=== PATIENT | female | born 1955 | race Caucasian/White ===

== ENCOUNTER 2016-04-12 19:38 | Observation (INO) | payer OTHER ==
[2016-04-12 20:25] LABS: Basophils # (A) 0.1 k/uL (0-0.2); Basophils % (A) 1 %; CHCM 34.6; Eosinophils # (A) 0.1 k/uL (0-0.7); Eosinophils % (A) 2 %; HDW 2.66; Luc # (Auto) 0.12; Luc % (Auto) 2; Lymphocytes # (A) 1.4 k/uL (1.0-4.8); Lymphocytes % (A) 23 %; MCHC 33.2 g/dL (31.0-37.0); MCV 90.1 fL (80.0-100.0); Mean Platelet Volume 7.9; Monocytes # (A) 0.5 k/uL (0-1.0); Monocytes % (A) 8 %; Neutrophils # (A) 3.9 k/uL (1.3-7.7); Neutrophils % (A) 65 %; RDW 13.2 % (11.5-15.5); WBC (Perox) 6.22
[2016-04-12 20:38] LABS: ALT 45 U/L (9-52); AST 25 U/L (14-36); Alkaline Phosphatase 101 U/L (38-126); Amylase <30 U/L (30-110); Anion Gap 15 mmol/L; Blood Urea Nitrogen 12 mg/dL (7-17); Carbon Dioxide 25 mmol/L (22-30); Chloride 104 mmol/L (98-107); Glucose 115 mg/dL (74-99); Non-African American GFR(MDRD) >60 (>60 ml/min/1.73 sqM); Potassium 3.7 mmol/L (3.5-5.1); Sodium 144 mmol/L (137-145); Total Bilirubin 0.5 mg/dL (0.2-1.3); Total Protein 7.6 g/dL (6.3-8.2)
[2016-04-12] MEDS ORDERED: NITROGLYCERIN OINT 1 INCH/GM PACKET TOPICAL STA (20:43)
[2016-04-12] MEDS ORDERED: ASPIRIN 81 MG CHEW PO STA (20:43)
--- NOTE | 2016-04-12 20:43 | XR ---
EXAMINATION TYPE: XR chest 2V DATE OF EXAM: 04/12/2016 8:29 PM COMPARISON: NONE HISTORY: Chest pain TECHNIQUE: Frontal and lateral views of the chest are obtained. FINDINGS: Heart and mediastinum are normal. Lungs are clear of consolidation. There are no hilar mas ses. Costophrenic angles are clear. There are chest leads. IMPRESSION: No active cardiopulmonary disease.
--- NOTE | 2016-04-12 20:46 | ED ---
General Adult HPI - General Chief complaint: Chest Pain Stated complaint: Chest Pain Time Seen by Provider: 04/12/16 20:34 Source: patient, RN notes reviewed Mode of arrival: wheelchair Limitations: no limitations - History of Present Illness Initial comments: Patient is a pleasant [id number] female presenting to the emergency department with complaints of chest discomfort. Onset of symptoms was 2 days ago. Symptoms worsened today. Symptoms have been waxing and waning. Patient states symptoms are currently minimal. Patient complains of burning in her chest without radiation. No associated dyspnea, nausea or diaphoresis. Food may or may not be related. Patient did have similar symptoms around 10 years ago associated with her gallbladder. No leg pain or swelling. No cough or fever. - Related Data Home Medications Medication Instructions Recorded Confirmed ALPRAZolam [Xanax] 0.125 - 0.25 mg PO DAILY PRN 04/12/16 04/12/16 Atenolol [Tenormin] 50 mg PO DAILY 04/12/16 04/12/16 Cyanocobalamin [Vitamin B-12] 500 mcg PO DAILY 04/12/16 04/12/16 Hydrochlorothiazide 12.5 mg PO DAILY@1200 04/12/16 04/12/16 Omeprazole [PriLOSEC] 20 mg PO DAILY 04/12/16 04/12/16 Valsartan [Diovan] 40 mg PO DAILY 04/12/16 04/12/16 diphenhydrAMINE [Benadryl] 25 mg PO BID 04/12/16 04/12/16 metFORMIN HCL [Glucophage] 500 mg PO DAILY 04/12/16 04/12/16 Allergies Allergy/AdvReac Type Severity Reaction Status Date / Time ampicillin Allergy Unknown Verified 04/12/16 20:12 cephalexin [From Keflex] Allergy Unknown Verified 04/12/16 20:12 codeine Allergy Unknown Verified 04/12/16 20:12 erythromycin base Allergy Unknown Verified 04/12/16 20:12 Penicillins Allergy Unknown Verified 04/12/16 20:12 tetracycline Allergy Unknown Verified 04/12/16 20:12 Review of Systems ROS Statement: Those systems with pertinent positive or pertinent negative responses have been documented in the HPI. ROS Other: All systems not noted in ROS Statement are negative. Constitutional: Denies: fever Eyes: Denies: eye pain ENT: Denies: ear pain Respiratory: Denies: cough, dyspnea Cardiovascular: Reports: chest pain. Denies: palpitations Endocrine: Denies: fatigue Gastrointestinal: Denies: abdominal pain, nausea, vomiting Genitourinary: Denies: dysuria Musculoskeletal: Denies: back pain Skin: Denies: rash Neurological: Denies: headache Psychiatric: Denies: depression Past Medical History Past Medical History: Diabetes Mellitus, Hypertension Additional Past Medical History / Comment(s): irregular heart rate History of Any Multi-Drug Resistant Organisms: None Reported Past Surgical History: Hernia Repair Past Psychological History: Anxiety Smoking Status: Current every day smoker Past Alcohol Use History: None Reported Past Drug Use History: None Reported General Exam Limitations: no limitations General appearance: alert, in no apparent distress Head exam: Present: atraumatic, normocephalic Eye exam: Present: normal appearance, PERRL ENT exam: Present: normal oropharynx Neck exam: Present: normal inspection Respiratory exam: Present: normal lung sounds bilaterally Cardiovascular Exam: Present: regular rate, normal rhythm Expanded Peripheral pulses: 2+: Radial (R), Radial (L), Dorsalis Pedis (R), Dorsalis Pedis (L) GI/Abdominal exam: Present: soft. Absent: tenderness Extremities exam: Present: normal inspection. Absent: pedal edema, calf tenderness Neurological exam: Present: alert Psychiatric exam: Present: normal affect, normal mood Skin exam: Absent: rash Course Vital Signs 04/12/16 04/12/16 19:42 20:57 Temperature 97.9 F Pulse Rate 77 64 Respiratory 18 16 Rate Blood Pressure 199/91 155/77 O2 Sat by Pulse 95 97 Oximetry EKG Findings - EKG Comments: EKG Findings:: Sinus rhythm at 72. First-degree AV block. MI of 220. QRS 88. QT 406. QTc 444. Left axis. LVH criteria. Inferior Q waves. Medical Decision Making - Medical Decision Making Patient reexamined and resting comfortably in bed. Patient is symptom-free. Patient updated on results and plan. Case discussed in detail with practitioner Melissa wilkins, who will admit for Dr. brown for dandre - Lab Data Result diagrams: 04/12/16 20:00 04/12/16 20:00 Lab Results 04/12/16 04/12/16 04/12/16 Range/Units 20:00 20:00 20:00 WBC 6.0 (3.8-10.6) k/uL RBC 5.00 (3.80-5.40) m/uL Hgb 15.0 (11.4-16.0) gm/dL Hct 45.0 (34.0-46.0) % MCV 90.1 (80.0-100.0) fL MCH 30.0 (25.0-35.0) pg MCHC 33.2 (31.0-37.0) g/dL RDW 13.2 (11.5-15.5) % Plt Count 208 (150-450) k/uL Neutrophils % 65 % Lymphocytes % 23 % Monocytes % 8 % Eosinophils % 2 % Basophils % 1 % Neutrophils # 3.9 (1.3-7.7) k/uL Lymphocytes # 1.4 (1.0-4.8) k/uL Monocytes # 0.5 (0-1.0) k/uL Eosinophils # 0.1 (0-0.7) k/uL Basophils # 0.1 (0-0.2) k/uL PT (9.0-12.0) sec INR (<1.1) APTT (22.0-30.0) sec Sodium 144 (137-145) mmol/L Potassium 3.7 (3.5-5.1) mmol/L Chloride 104 (98-107) mmol/L Carbon Dioxide 25 (22-30) mmol/L Anion Gap 15 mmol/L BUN 12 (7-17) mg/dL Creatinine 0.56 (0.52-1.04) mg/dL Est GFR (MDRD) Af Amer >60 (>60 ml/min/1.73 sqM) Est GFR (MDRD) Non-Af >60 (>60 ml/min/1.73 sqM) Glucose 115 H (74-99) mg/dL Calcium 10.0 (8.4-10.2) mg/dL Magnesium (1.6-2.3) mg/dL Total Bilirubin 0.5 (0.2-1.3) mg/dL AST 25 (14-36) U/L ALT 45 (9-52) U/L Alkaline Phosphatase 101 (38-126) U/L Total Creatine Kinase 104 (30-135) U/L CK-MB (CK-2) 2.8 H* (0.0-2.4) ng/mL CK-MB (CK-2) Rel Index 2.7 Troponin I <0.012 (0.000-0.034) ng/mL Total Protein 7.6 (6.3-8.2) g/dL Albumin 4.7 (3.5-5.0) g/dL Amylase <30 L (30-110) U/L Lipase 76 (23-300) U/L 04/12/16 04/12/16 Range/Units 20:00 20:00 WBC (3.8-10.6) k/uL RBC (3.80-5.40) m/uL Hgb (11.4-16.0) gm/dL Hct (34.0-46.0) % MCV (80.0-100.0) fL MCH (25.0-35.0) pg MCHC (31.0-37.0) g/dL RDW (11.5-15.5) % Plt Count (150-450) k/uL Neutrophils % % Lymphocytes % % Monocytes % % Eosinophils % % Basophils % % Neutrophils # (1.3-7.7) k/uL Lymphocytes # (1.0-4.8) k/uL Monocytes # (0-1.0) k/uL Eosinophils # (0-0.7) k/uL Basophils # (0-0.2) k/uL PT 10.0 (9.0-12.0) sec INR 1.0 (<1.1) APTT 24.6 (22.0-30.0) sec Sodium (137-145) mmol/L Potassium (3.5-5.1) mmol/L Chloride (98-107) mmol/L Carbon Dioxide (22-30) mmol/L Anion Gap mmol/L BUN (7-17) mg/dL Creatinine (0.52-1.04) mg/dL Est GFR (MDRD) Af Amer (>60 ml/min/1.73 sqM) Est GFR (MDRD) Non-Af (>60 ml/min/1.73 sqM) Glucose (74-99) mg/dL Calcium (8.4-10.2) mg/dL Magnesium 1.9 (1.6-2.3) mg/dL Total Bilirubin (0.2-1.3) mg/dL AST (14-36) U/L ALT (9-52) U/L Alkaline Phosphatase (38-126) U/L Total Creatine Kinase (30-135) U/L CK-MB (CK-2) (0.0-2.4) ng/mL CK-MB (CK-2) Rel Index Troponin I (0.000-0.034) ng/mL Total Protein (6.3-8.2) g/dL Albumin (3.5-5.0) g/dL Amylase (30-110) U/L Lipase (23-300) U/L - Radiology Data Radiology results: image reviewed (Chest x-ray shows no acute process.) Disposition Clinical Impression: Chest pain Disposition: ADMITTED IP TO THIS HOSP
[2016-04-12 20:49] LABS: Creatine Kinase 104 U/L (30-135)
[2016-04-12 21:02] LABS: Troponin I <0.012 ng/mL (0.000-0.034)
[2016-04-12 21:03] LABS: Partial Thromboplastin Time 24.6 sec (22.0-30.0)
[2016-04-12 21:07] LABS: Creatine Kinase MB 2.8 ng/mL (0.0-2.4)
[2016-04-12] MEDS ORDERED: HEPARIN SODIUM,PORCINE 5,000 UNIT/ML 1 ML VIAL IV ONE (21:34)
[2016-04-12] MEDS ORDERED: HEPARIN SODIUM,PORCINE 5,000 UNIT/ML 1 ML VIAL IV PRN (21:34)
[2016-04-12] MEDS ORDERED: NITROGLYCERIN SL TABS 0.4 MG TAB SUBLINGUAL PRN (21:34)
[2016-04-12] MEDS ORDERED: HEPARIN SODIUM,PORCINE/D5W PMX 25,000 UNIT in DEXTROSE/WATER 1 500ML.BAG IV SCH (21:45)
[2016-04-12] MEDS ORDERED: SODIUM CHLORIDE 0.9% 1,000 ML IV SCH (21:45)
[2016-04-12] MEDS: PANTOPRAZOLE 40 MG/10 ML VIAL IVP SCH (22:07)
[2016-04-12 23:27] VITALS: BMI 37.1
[2016-04-13 03:08] LABS: Mean Platelet Volume 7.5
[2016-04-13 03:18] LABS: Cholesterol 255 mg/dL (<200); HDL Cholesterol 58 mg/dL (40-60); Triglycerides 253 mg/dL (<150)
[2016-04-13 03:23] LABS: Creatine Kinase 78 U/L (30-135)
[2016-04-13 03:37] LABS: Creatine Kinase MB 1.9 ng/mL (0.0-2.4); Troponin I <0.012 ng/mL (0.000-0.034)
[2016-04-13 07:56] VITALS: RESP 18
[2016-04-13 08:39] LABS: Creatine Kinase 79 U/L (30-135)
--- NOTE | 2016-04-13 08:48 | US ---
EXAMINATION TYPE: US gallbladder DATE OF EXAM: 04/13/2016 8:10 AM COMPARISON: Ultrasound kidneys 14 October 2014 CLINICAL HISTORY: Chest Pain. Epigastric pain EXAM MEASUREMENTS: Liver Length: 14.9 cm Gallbladder Wall: 0.2 cm CBD: 0.5 cm Right Kidney: 11.7 x 5.8 x 5.6 cm ANATOMY: Pancreas: Not well seen, there is overlying bowel gas. Liver: Difficult to evaluate d/t large amounts of bowel gas. Increased echogenicity throughout. The ultrasound being is attenuated. Decreased echogenicity present adjacent to the gallbladder may be ind icative of focal fatty sparing. Gallbladder: No obvious pathology. Difficult to evaluate, large amounts of bowel gas. Evidence for sonographic Witt's sign: No CBD: Does not appear dilated Right Kidney: Echogenic area mid pole = 0.6 cm this may represent a small angiomyolipoma which was n ot seen definitively on prior exam There is no ascites. IMPRESSION: Suspect fatty infiltration of the liver with focal fatty sparing. Findings in the right k idney as described. Limited exam Normal Values: Liver Length: < 16cm wnl, 17-18cm upper limits, >18cm enlarged Renal Length = 9 - 12cm GB Wall: < 0.3cm CBD: < 0.6cm or < 1.0cm post cholecystectomy
[2016-04-13 08:53] LABS: Creatine Kinase MB 1.7 ng/mL (0.0-2.4); Troponin I <0.012 ng/mL (0.000-0.034)
[2016-04-13] MEDS ORDERED: ASPIRIN 325 MG TAB PO SCH (09:00)
--- NOTE | 2016-04-13 10:31 | P.CRDCN ---
History of Present Illness Consult date: 04/13/16 History of present illness: This is a 60-year-old female with history of cardiac arrhythmias, hypertension and also diabetes mellitus being followed by Dr. Lim. Patient has had chest pain and body pains all the time. Apparently 15 years ago she had a stress test but hasn't had any workup since then. Yesterday she was having pain in the mid sternal area and also epigastric area which actually like her usual gallbladder pains. Usually she can get rid of this pain by walking around. Yesterday she would not get rid of the pains and finally she was concerned and came to the emergency room. Her EKGs did not reveal any acute changes. Her cardiac enzymes are negative. Since admission patient hasn't had any pains. We will arrange for a stress echocardiogram. If that is negative patient could be discharged home Review of Systems As per the chart Past Medical History Past Medical History: Diabetes Mellitus, Hypertension Additional Past Medical History / Comment(s): irregular heart rate History of Any Multi-Drug Resistant Organisms: None Reported Past Surgical History: Hernia Repair, Tonsillectomy Past Anesthesia/Blood Transfusion Reactions: No Reported Reaction Past Psychological History: Anxiety Smoking Status: Current every day smoker Past Alcohol Use History: None Reported Past Drug Use History: None Reported Medications and Allergies Home Medications Medication Instructions Recorded Confirmed Type ALPRAZolam [Xanax] 0.125 - 0.25 mg PO DAILY PRN 04/12/16 04/12/16 History Atenolol [Tenormin] 50 mg PO DAILY 04/12/16 04/12/16 History Cyanocobalamin [Vitamin B-12] 500 mcg PO DAILY 04/12/16 04/12/16 History Hydrochlorothiazide 12.5 mg PO DAILY@1200 04/12/16 04/12/16 History Omeprazole [PriLOSEC] 20 mg PO DAILY 04/12/16 04/12/16 History Valsartan [Diovan] 40 mg PO DAILY 04/12/16 04/12/16 History diphenhydrAMINE [Benadryl] 25 mg PO BID 04/12/16 04/12/16 History metFORMIN HCL [Glucophage] 500 mg PO DAILY 04/12/16 04/12/16 History Allergies Allergy/AdvReac Type Severity Reaction Status Date / Time ampicillin Allergy Unknown Verified 04/12/16 20:12 cephalexin [From Keflex] Allergy Unknown Verified 04/12/16 20:12 codeine Allergy Unknown Verified 04/12/16 20:12 erythromycin base Allergy Unknown Verified 04/12/16 20:12 Penicillins Allergy Unknown Verified 04/12/16 20:12 tetracycline Allergy Unknown Verified 04/12/16 20:12 Physical Exam Vitals: Vital Signs Temp Pulse Pulse Resp BP Pulse Ox 04/13/16 08:00 68 71 18 04/13/16 07:15 98.6 F 71 18 152/73 94 L 04/13/16 06:51 68 16 04/13/16 04:00 98.1 F 65 16 128/61 93 L 04/12/16 22:47 97.7 F 63 16 135/63 95 Intake and Output 04/12/16 04/13/16 04/13/16 22:59 06:59 14:59 Other: Voiding Method Toilet Toilet # Voids 1 Weight 104.326 kg GENERAL EXAM: Patient is alert and oriented and doesn't appear to be in any acute distress HEENT: Normocephalic. Normal reaction of pupils, equal size, normal range of extraocular motion. No erythema or exudates in the throat. NECK: No masses, no nuchal rigidity. CHEST: No chest wall deformity. LUNGS: Equal air entry with no crackles or wheeze. HEART: S1 and S2 normal with no audible mumurs or gallops. Regular rhythm, femorals equal on both sides.. ABDOMEN: No hepatosplenomegaly, normal bowel sounds, no guarding or rigidity. SKIN: No rashes CENTRAL NERVOUS SYSTEM: No focal deficits. EXTREMITIES: No cyanosis, clubbing or edema. Results 04/13/16 02:32 04/12/16 20:00 Cardiac Enzymes 04/13/16 04/13/16 Range/Units 02:32 07:49 CK-MB (CK-2) 1.9 1.7 (0.0-2.4) ng/mL Troponin I <0.012 <0.012 (0.000-0.034) ng/mL Lipids 04/13/16 Range/Units 02:32 Triglycerides 253 H (<150) mg/dL Cholesterol 255 H (<200) mg/dL HDL Cholesterol 58 (40-60) mg/dL CBC 01/05/17 Range/Units 02:32 Plt Count 199 (150-450) k/uL Current Medications Generic Name Dose Route Start Last Admin Trade Name Freq PRN Reason Stop Dose Admin Aspirin 325 mg 04/13/16 09:00 Aspirin PO DAILY PUNEET Heparin Sodium (Porcine) 0 unit 04/12/16 21:34 Heparin IV Q6HR PRN Low PTT Protocol Heparin Sodium/Dextrose 25,000 500 mls @ 20 mls/hr 04/12/16 21:45 04/12/16 22 :04 unit/ IV Solution IV Not Given .Q24H PUNEET Protocol 9.59 UNITS/KG/HR Sodium Chloride 1,000 mls @ 100 mls/hr 04/12/16 21:45 04/12/16 22:09 Saline 0.9% IV 100 mls/hr .Q10H PUNEET Administration Nitroglycerin 1 inch 04/13/16 00:00 Nitro-Bid Oint TOPICAL Q6HR PUNEET Nitroglycerin 0.4 mg 04/12/16 21:34 Nitrostat SUBLINGUAL Q5M PRN Chest Pain Pantoprazole Sodium 40 mg 04/12/16 21:45 04/12/16 22:07 Protonix IVP 40 mg DAILY PUNEET Administration Intake and Output 04/12/16 04/13/16 04/13/16 22:59 06:59 14:59 Other: Voiding Method Toilet Toilet # Voids 1 Weight 104.326 kg 04/13/16 02:32 EKG Interpretations (text) Sinus rhythm Assessment and Plan (1) Chest pain Status: Acute (2) Hypertension Status: Acute (3) Diabetes mellitus Status: Acute Plan: Her chest pains have some atypical features. EKGs and cardiac enzymes are negative. Patient has been stable since admission. Being scheduled for stress echocardiogram. If that is negative patient could be discharged home
[2016-04-13] MEDS ORDERED: ALPRAZolam 0.25 MG TAB PO PRN (10:52)
[2016-04-13] MEDS ORDERED: DOBUTamine DRIP for NUC MED 500 MG in DEXTROSE/WATER 1 250ML.BAG IV ONE (11:00)
[2016-04-13] MEDS: NITROGLYCERIN OINT 1 INCH/GM PACKET TOPICAL SCH ×3 (11:41→12:38)
[2016-04-13] MEDS ORDERED: ATENOLOL 50 MG TAB PO SCH (11:43)
[2016-04-13] MEDS ORDERED: metFORMIN 500 MG TAB PO SCH (11:45)
[2016-04-13] MEDS ORDERED: HYDROCHLOROTHIAZIDE 12.5 MG CAP PO SCH (12:00)
[2016-04-13 12:03] VITALS: BP 165/63; TEMP 98.9
[2016-04-13] MEDS: PANTOPRAZOLE 40 MG/10 ML VIAL IVP SCH (12:22)
[2016-04-13 12:31] LABS: Glucose,Whole Blood 108 mg/dL (75-99)
[2016-04-13 12:38] VITALS: PULSE 68
--- NOTE | 2016-04-13 13:10 | ECHOS ---
DATE OF SERVICE: 04/13/2016 AGE: 60Y SEX: F HT: 66" WT: 230 lbs. Protocol John: Others: Stage: Dur. of Exercise: 9:45 minutes *Heart Rate Blood Pressure *Rest: 76 Rest: 135/87 * *Max. Achieved: 123 Maximum BP: 189/85 85% PMHR: 134 100% PMHR: 158 *METS: INDICATIONS: Chest pain. MEDICATIONS: See list 60-year-old female. Clinical information: Chest pain, shortness of palpitations, family history of coronary artery disease, diabetes, hypertension. History of glaucoma. Utilizing standard dobutamine protocol, dobutamine was increased up to 40 mcg per Kg. Attained a peak heart rate of 123 beats per minute, which she is approximately 78%, could not able to use Atropine because of the history of glaucoma. Patient did not report any symptoms, baseline EKG shows normal sinus rhythm, normal ST-T waves. Attained a peak heart rate of 123, which is approximately 78% predicted maximal heart rate without any chest pain without any ST segment deviations or clinical symptoms of chest pain. Baseline images show normal thickening and contractibility. Postexercise images show improved contractibility and thickening without any hypokinetic or dyskinetic segments but this is not a complete study because of we did not reach the 85% predicted maximum heart rate. Clinical correlation is suggested. IMPRESSION: 1. Incomplete dobutamine stress echocardiogram, with normal wall motion at 78% predicted maximum heart rate. 2. Patient did not report any symptoms or EKG changes suggestive of dobutamine induced ischemia.
--- NOTE | 2016-04-13 20:10 | HP ---
A 60-year-old female with diabetes mellitus, cardiac arrhythmia history, came in with chest pain, body pain. Patient underwent stress test which was negative and patient's D-dimer is negative. Patient's chest pain in mid sternum and also in the epigastric area. Patient had a gallbladder ultrasound which did not show any cholelithiasis. Patient's pain precipitated by food and patient denied any lightheadedness, shortness of breath, diaphoresis. Patient does have a little bit of nausea. Patient's chest pain is nonpleuritic in nature. Patient does not have any pneumonic process on the chest x-ray. EKG did not show any acute abnormalities and patient's chest pain is probably to gastroesophageal reflux disease. Patient will be discharged on 14 days of Prilose. REVIEW OF SYSTEMS: CONSTITUTIONAL: No fever, no malaise, no fatigue. HEENT: No recent visual problems or hearing problems. Denied any sore throat. CARDIOVASCULAR: As mentioned above. PULMONARY: No shortness of breath, no cough, no hemoptysis. GASTROINTESTINAL: No diarrhea, no nausea, no vomiting, no abdominal pain. Normoactive bowel sounds. NEUROLOGICAL: No headaches, no weakness, no numbness. HEMATOLOGICAL: Denies any bleeding or petechiae. GENITOURINARY: Denies any burning micturition, frequency, or urgency. MUSCULOSKELETAL/RHEUMATOLOGICAL: Denies any joint pain, swelling, or any muscle pain. ENDOCRINE: Denies any polyuria or polydipsia. The rest of the 14 point review of systems is negative. PAST MEDICAL HISTORY: Diabetes mellitus, hypertension, cardiac arrhythmias in the past, hernia repair, tonsillectomy, anxiety disorder. Patient continues to smoke. Denied any alcohol abuse or any drug abuse. Home medications include: 1. Xanax. 2. Atenolol. 3. Cyanocobalamin. 4. Hydrochlorothiazide. 5. Omeprazole. 6. Valsartan. 7. Diphenhydramine. 8. Metformin. ALLERGIES: ALLERGIC TO AMPICILLIN, KEFLEX AND CODEINE, ERYTHROMYCIN, PENICILLIN, TETRACYCLINE. PHYSICAL EXAMINATION: VITAL SIGNS: Temperature 98.6, pulse of 68, respiratory rate of 18, blood pressure is 152/73, saturating at 94% on room air. GENERAL: The patient is alert and oriented x3, not in any acute distress. Well developed, well nourished. HEENT: Pupils are round and equally reacting to light. EOMI. No scleral icterus. No conjunctival pallor. Normocephalic, atraumatic. No pharyngeal erythema. No thyromegaly. CARDIOVASCULAR: S1 and S2 present. No murmurs, rubs, or gallops. PULMONARY: Chest is clear to auscultation, no wheezing or crackles. ABDOMEN: Soft, nontender, nondistended, normoactive bowel sounds. No palpable organomegaly. MUSCULOSKELETAL: No joint swelling or deformity. EXTREMITIES: No cyanosis, clubbing, or pedal edema. NEUROLOGICAL: Gross neurological examination did not reveal any focal deficits. SKIN: No rashes. LABORATORY DATA: CBC, CMP troponins, EKG are all essentially negative. D-dimer is negative. Patient underwent dobutamine stress test, which was negative. ASSESSMENT AND PLAN: 1. Chest pain probable related to gastroesophageal reflux disease. Rule out acute coronary syndrome and unstable angina. Patient is already taking Prilosec at home, which I asked her to take 40 mg instead of 20 mg. Avoid nonsteroidal anti-inflammatory drugs. 2. Hypertension. 3. Diabetes mellitus type 2. 4. Anxiety disorder. 5. For above-mentioned multiple problems, patient will continue her home medications. 6. Patient will follow up with her primary care physician in 3 to 7 days. 7. Activity as tolerated. Cardiac and diabetic 1800-calorie diet. 8. Nicotine cessation counseling was provided.
[2016-04-13] MEDS ORDERED: diphenhydrAMINE 25 MG CAP PO SCH (21:00)
[2016-04-14] MEDS ORDERED: VALSARTAN 40 MG TAB PO SCH (09:00)
[2016-04-14] MEDS ORDERED: metFORMIN 500 MG TAB PO SCH (09:00)
[2016-04-14] MEDS ORDERED: NON-FORMULARY DRUG (Omeprazole 20 MG) PO SCH (09:00)
[2016-04-14] MEDS ORDERED: ATENOLOL 50 MG TAB PO SCH (09:00)
[2016-04-14] MEDS ORDERED: CYANOCOBALAMIN 500 MCG TAB PO SCH (09:00)
--- NOTE | 2016-05-09 08:41 | DS ---
DATE OF ADMISSION: 04/12/2016 DATE OF DISCHARGE: 04/13/2016 DATE OF SERVICE: 04/13/2016 Please refer to my dictation of H&P for further details of discharge. Considered that note as both H&P and discharge summary. My dictation of H&P and discharge summary are the same. Please refer to that note.
== END 2016-04-13 15:10 | disposition home or self-care (01) ==
LOC: EC 19:38 → 3OBS 21:34
PROVIDERS: ADMIT Internal Medicine; ATTEND Internal Medicine
DX: R07.9 Chest pain, unspecified (principal); K21.9 Gastro-esophageal reflux disease without esophagitis; I10 Essential (primary) hypertension; E11.9 Type 2 diabetes mellitus without complications; Z79.84 Long term (current) use of oral hypoglycemic drugs; Z79.899 Other long term (current) drug therapy; Z88.1 Allergy status to other antibiotic agents; Z88.3 Allergy status to other anti-infective agents; Z88.5 Allergy status to narcotic agent; Z88.0 Allergy status to penicillin; F41.9 Anxiety disorder, unspecified; F17.200 Nicotine dependence, unspecified, uncomplicated
CPT/HCPCS: 99285; 96374; 36415; 93005; 93017; 93350; 80061; 80053; 82150; 82550 ×2; 82553 ×2; 83690; 83735; 84484 ×2; 85025; 85049; 85610; 85730; 71020; 76705; G0378 ×2; J1250; C9113 ×2

== ENCOUNTER 2016-05-19 08:50 | Day surgery (SDC) | payer OTHER ==
[2016-05-16 15:47] VITALS: BMI 35.5
[~2016-05-19 08:50] MED LIST: LACTATED RINGERS 1,000 ML IV SCH
[2016-05-19 09:17] VITALS: RESP 16; TEMP 97.9
[2016-05-19 09:42] LABS: Glucose,Whole Blood 124 mg/dL (75-99)
[2016-05-19] MEDS ORDERED: PROPOFOL 10 MG/ML 20 ML VIAL IV ONE (10:47)
[2016-05-19] MEDS ORDERED: LIDOCAINE 1% INJ 10MG/ML (20 ML MDV) ONE (10:47)
--- NOTE | 2016-05-19 11:08 | P.GSHP ---
History of Present Illness H&P Date: 05/19/16 Chief Complaint: GI bleed This is a 60-year-old female referred from Dr. Llanes. Patient presents for colonoscopy. She's had issues rectal bleeding. - Constitutional Constitutional: Reports as per HPI Past Medical History Past Medical History: Chest Pain / Angina, COPD, Diabetes Mellitus, GERD/Reflux , Hypertension Additional Past Medical History / Comment(s): STATES HAS HAD SOME BLOOD IN STOOL IN PAST, ABD. PAIN, CONSTIPATION. STATES INCISIONAL HERNIA, STATES NO MEDS FOR COPD, HX OF HEART MURMUR History of Any Multi-Drug Resistant Organisms: None Reported Past Surgical History: Hernia Repair, Tonsillectomy Additional Past Surgical History / Comment(s): STATES INCISIONAL HERNIA REPAIR WITH MESH. 2 ABORTIONS Past Anesthesia/Blood Transfusion Reactions: Previous Problems w/ Anesthesia Additional Past Anesthesia/Blood Transfusion Reaction / Comment(s): STATES WOKE UP DURING EGD IN PAST, ALSO STATES "FEELS LIKE SHE CAN'T BREATHE WHEN COMING OUT OF ANESTHESIA" Past Psychological History: Anxiety, Panic Disorder Smoking Status: Current every day smoker Past Alcohol Use History: None Reported Additional Past Alcohol Use History / Comment(s): STATES SMOKES 1 AND 1/2 TO 2 PPD FROM AGE 13 Past Drug Use History: None Reported - Past Family History Father Family Medical History: Cancer Additional Family Medical History / Comment(s): HODGKIN'S Medications and Allergies Home Medications Medication Instructions Recorded Confirmed Type ALPRAZolam [Xanax] 0.125 - 0.25 mg PO DAILY PRN 04/12/16 05/19/16 History Atenolol [Tenormin] 50 mg PO DAILY 04/12/16 05/19/16 History Cyanocobalamin [Vitamin B-12] 500 mcg PO DAILY 04/12/16 05/19/16 History Hydrochlorothiazide 12.5 mg PO DAILY@1200 04/12/16 05/19/16 History Omeprazole [PriLOSEC] 20 mg PO DAILY 04/12/16 05/19/16 History Valsartan [Diovan] 40 mg PO DAILY 04/12/16 05/19/16 History metFORMIN HCL [Glucophage] 500 mg PO DAILY 04/12/16 05/19/16 History Acetaminophen Tab [Tylenol] 325 mg PO DIRECTED PRN 05/16/16 05/19/16 History Nystatin 1 applic TOPICAL DIRECTED PRN 05/16/16 05/19/16 History Allergies Allergy/AdvReac Type Severity Reaction Status Date / Time ampicillin Allergy Unknown Verified 05/19/16 09:07 cephalexin [From Keflex] Allergy Rash/Hives Verified 05/19/16 09:07 codeine Allergy Unknown Verified 05/19/16 09:07 Penicillins Allergy Unknown Verified 05/19/16 09:07 Childhood tetracycline Allergy Unknown Verified 05/19/16 09:07 erythromycin base AdvReac Nausea & Verified 05/19/16 09:07 Vomiting Surgical - Exam Vital Signs Temp Pulse Resp BP Pulse Ox 97.9 F 60 16 152/94 95 05/19/16 09:15 05/19/16 09:15 05/19/16 09:15 05/19/16 09:15 05/19/16 09:15 - General well developed, no distress - Eyes PERRL - ENT normal pinna - Neck no masses - Respiratory normal expansion - Cardiovascular Rhythm: regular - Abdomen Abdomen: soft, non tender Results - Labs Abnormal Lab Results - Last 24 Hours (Table) 05/19/16 Range/Units 09:13 POC Glucose (mg/dL) 124 H (75-99) mg/dL Assessment and Plan Plan: GI bleed. We'll perform colonoscopy.
--- NOTE | 2016-05-19 11:27 | P.OP ---
Date of Procedure: 05/19/16 Preoperative Diagnosis: Screening colonoscopy Postoperative Diagnosis: I reticulosis Left colon polyp Transverse colon polyp Right colon polyp Procedure(s) Performed: Colonoscopy Anesthesia: MAC Surgeon: Sergei Torres Pathology: other (Colonic polyps) Condition: stable Disposition: PACU Description of Procedure: The patient's placed on the endoscopy table in the lateral position. She received IV sedation. Digital rectal exam was performed which revealed no abnormalities. The flexible colonoscope was then placed patient anus and passed throughout the entire colon. The ileocecal valve was visualized. The cecum appeared normal. In the ascending colon a small polyp seen this removed the forcep. Scope summer back the transverse colon another polyp seen this is removed with a forcep. Scope was brought back the descending colon and there were scattered diverticular changes. There is also pedunculated polyp seen this is removed with the snare. Scope was then brought back the sigmoid colon there is more diverticular changes seen. Scope was then brought back the rectum and this appeared normal. Scope was withdrawn for patient.
[2016-05-19 11:59] VITALS: BP 150/77; PULSE 51
== END 2016-05-19 12:03 | disposition home or self-care (01) ==
LOC: ORWHC2ENDO 08:50
PROVIDERS: ATTEND Surgery
DX: D12.4 Benign neoplasm of descending colon (principal); D12.2 Benign neoplasm of ascending colon; D12.3 Benign neoplasm of transverse colon; K57.30 Diverticulosis of large intestine without perforation or abscess without bleeding; Z87.19 Personal history of other diseases of the digestive system; J44.9 Chronic obstructive pulmonary disease, unspecified; E11.9 Type 2 diabetes mellitus without complications; K21.9 Gastro-esophageal reflux disease without esophagitis; I10 Essential (primary) hypertension; F41.9 Anxiety disorder, unspecified; F41.0 Panic disorder [episodic paroxysmal anxiety]; F17.200 Nicotine dependence, unspecified, uncomplicated; Z79.84 Long term (current) use of oral hypoglycemic drugs; Z79.899 Other long term (current) drug therapy; Z88.1 Allergy status to other antibiotic agents; Z88.5 Allergy status to narcotic agent; Z88.0 Allergy status to penicillin
CPT/HCPCS: 88305; 45380; 45385; J2001; J2704; 99153

== ENCOUNTER 2017-06-29 17:26 | Emergency (ER) | payer OTHER ==
[2017-06-29] MEDS ORDERED: SODIUM CHLORIDE 0.9% 500 ML IV STA (18:06)
[2017-06-29 18:44] LABS: Basophils % (A) 1 %; Eosinophils # (A) 0.1 k/uL (0-0.7); Eosinophils % (A) 2 %; HCT 43.7 % (34.0-46.0); HGB 14.6 gm/dL (11.4-16.0); Lymphocytes # (A) 1.7 k/uL (1.0-4.8); Lymphocytes % (A) 22 %; MCHC 33.4 g/dL (31.0-37.0); Mean Platelet Volume 8.1; Monocytes # (A) 0.6 k/uL (0-1.0); Monocytes % (A) 7 %; Neutrophils % (A) 67 %; Platelet Count 237 k/uL (150-450); RBC 5.02 m/uL (3.80-5.40); RDW 13.4 % (11.5-15.5); WBC 7.5 k/uL (3.8-10.6)
[2017-06-29 18:48] LABS: ALT 46 U/L (9-52); AST 27 U/L (14-36); Albumin 4.4 g/dL (3.5-5.0); Alkaline Phosphatase 90 U/L (38-126); Anion Gap 12 mmol/L; Blood Urea Nitrogen 13 mg/dL (7-17); Calcium 9.7 mg/dL (8.4-10.2); Carbon Dioxide 23 mmol/L (22-30); Chloride 101 mmol/L (98-107); Glucose 153 mg/dL (74-99); Magnesium 1.8 mg/dL (1.6-2.3); Phosphorus 3.2 mg/dL (2.5-4.5); Potassium 3.8 mmol/L (3.5-5.1); Sodium 136 mmol/L (137-145); Total Bilirubin 0.4 mg/dL (0.2-1.3)
[2017-06-29 18:49] LABS: Partial Thromboplastin Time 24.8 sec (22.0-30.0); Prothrombin Time 10.2 sec (9.0-12.0)
[2017-06-29 19:00] LABS: Creatine Kinase 90 U/L (30-135)
[2017-06-29 19:12] LABS: Creatine Kinase MB 1.9 ng/mL (0.0-2.4); Troponin I <0.012 ng/mL (0.000-0.034)
--- NOTE | 2017-06-29 19:14 | ED ---
General Adult HPI - General Chief complaint: Dizziness Stated complaint: Dizzy/irregular heartbeat Time Seen by Provider: 06/29/17 18:06 Source: patient, RN notes reviewed, old records reviewed Mode of arrival: ambulatory Limitations: no limitations - History of Present Illness Initial comments: This is a 61-year-old female to the ER for evaluation. She presents today for evaluation regards to dizziness. Patient has no real significant medical history mild history of arrhythmia, complains of 2 episodes of the room spinning around. She states episodes resolve spontaneously. Related to any specific positioning or event. No recent head trauma no headache no other neurological complaint. Patient never had prior symptoms in her life. Patient denies any recent change in medications - Related Data Home Medications Medication Instructions Recorded Confirmed ALPRAZolam [Xanax] 0.125 - 0.25 mg PO BID PRN 04/12/16 06/29/17 Atenolol [Tenormin] 50 mg PO DAILY 04/12/16 06/29/17 Cyanocobalamin [Vitamin B-12] 500 mcg PO DAILY 04/12/16 06/29/17 Hydrochlorothiazide 12.5 mg PO DAILY 04/12/16 06/29/17 Omeprazole [PriLOSEC] 20 mg PO DAILY 04/12/16 06/29/17 Valsartan [Diovan] 40 mg PO DAILY 04/12/16 06/29/17 metFORMIN HCL [Glucophage] 500 mg PO DAILY 04/12/16 06/29/17 Allergies Allergy/AdvReac Type Severity Reaction Status Date / Time ampicillin Allergy Unknown Verified 06/29/17 18:25 cephalexin [From Keflex] Allergy Rash/Hives Verified 06/29/17 18:25 clindamycin Allergy Unknown Verified 06/29/17 18:25 codeine Allergy Unknown Verified 06/29/17 18:25 Penicillins Allergy Unknown Verified 06/29/17 18:25 Childhood tetracycline Allergy Unknown Verified 06/29/17 18:25 erythromycin base AdvReac Nausea & Verified 06/29/17 18:25 Vomiting Review of Systems ROS Statement: Those systems with pertinent positive or pertinent negative responses have been documented in the HPI. ROS Other: All systems not noted in ROS Statement are negative. Past Medical History Past Medical History: Diabetes Mellitus, Hypertension Additional Past Medical History / Comment(s): irregular heart rate History of Any Multi-Drug Resistant Organisms: None Reported Past Surgical History: Hernia Repair, Tonsillectomy Past Anesthesia/Blood Transfusion Reactions: No Reported Reaction Past Psychological History: Anxiety Smoking Status: Current every day smoker Past Alcohol Use History: None Reported Past Drug Use History: None Reported General Exam - General Exam Comments Initial Comments: [place] negative cerebellar testing negative Limitations: no limitations General appearance: alert, in no apparent distress Head exam: Present: atraumatic, normocephalic, normal inspection Eye exam: Present: normal appearance, PERRL, EOMI. Absent: scleral icterus, conjunctival injection, periorbital swelling ENT exam: Present: normal exam, mucous membranes moist Neck exam: Present: normal inspection. Absent: tenderness, meningismus, lymphadenopathy Respiratory exam: Present: normal lung sounds bilaterally. Absent: respiratory distress, wheezes, rales, rhonchi, stridor Cardiovascular Exam: Present: regular rate, normal rhythm, normal heart sounds. Absent: systolic murmur, diastolic murmur, rubs, gallop, clicks GI/Abdominal exam: Present: soft, normal bowel sounds. Absent: distended, tenderness, guarding, rebound, rigid Extremities exam: Present: normal inspection, full ROM, normal capillary refill. Absent: tenderness, pedal edema, joint swelling, calf tenderness Back exam: Present: normal inspection Neurological exam: Present: alert, oriented X3, CN II-XII intact Psychiatric exam: Present: normal affect, normal mood Skin exam: Present: warm, dry, intact, normal color. Absent: rash Course Vital Signs 06/29/17 06/29/17 17:52 18:20 Temperature 97.7 F Pulse Rate 70 66 Respiratory 20 16 Rate Blood Pressure 162/77 142/75 O2 Sat by Pulse 96 99 Oximetry - Reevaluation(s) Reevaluation #1: 06/29/17 19:13 Patient remains without complaint EKG Findings - EKG Comments: EKG Findings:: EKG shows sinus rhythm rate of 63, pO2 36, QRS 104, QTC 440 Medical Decision Making - Medical Decision Making 61 female the ER for evaluation of episode of dizziness patient had 2 episodes of dizziness earlier today, symptoms resolved now. Patient states he feels better, was concerned about her heart palpitations would like to be discharged home. no PVCs no arrhythmia here in the ER, will be discharged - Lab Data Result diagrams: 06/29/17 18:20 06/29/17 18:20 Lab Results 06/29/17 06/29/17 06/29/17 Range/Units 18:20 18:20 18:20 WBC 7.5 (3.8-10.6) k/uL RBC 5.02 (3.80-5.40) m/uL Hgb 14.6 (11.4-16.0) gm/dL Hct 43.7 (34.0-46.0) % MCV 87.0 (80.0-100.0) fL MCH 29.0 (25.0-35.0) pg MCHC 33.4 (31.0-37.0) g/dL RDW 13.4 (11.5-15.5) % Plt Count 237 (150-450) k/uL Neutrophils % 67 % Lymphocytes % 22 % Monocytes % 7 % Eosinophils % 2 % Basophils % 1 % Neutrophils # 5.0 (1.3-7.7) k/uL Lymphocytes # 1.7 (1.0-4.8) k/uL Monocytes # 0.6 (0-1.0) k/uL Eosinophils # 0.1 (0-0.7) k/uL Basophils # 0.0 (0-0.2) k/uL PT (9.0-12.0) sec INR (<1.2) APTT (22.0-30.0) sec Sodium 136 L (137-145) mmol/L Potassium 3.8 (3.5-5.1) mmol/L Chloride 101 (98-107) mmol/L Carbon Dioxide 23 (22-30) mmol/L Anion Gap 12 mmol/L BUN 13 (7-17) mg/dL Creatinine 0.64 (0.52-1.04) mg/dL Est GFR (CKD-EPI)AfAm >90 (>60 ml/min/1.73 sqM) Est GFR (CKD-EPI)NonAf >90 (>60 ml/min/1.73 sqM) Glucose 153 H (74-99) mg/dL Calcium 9.7 (8.4-10.2) mg/dL Phosphorus 3.2 (2.5-4.5) mg/dL Magnesium 1.8 (1.6-2.3) mg/dL Total Bilirubin 0.4 (0.2-1.3) mg/dL AST 27 (14-36) U/L ALT 46 (9-52) U/L Alkaline Phosphatase 90 (38-126) U/L Total Creatine Kinase 90 (30-135) U/L Total Protein 7.0 (6.3-8.2) g/dL Albumin 4.4 (3.5-5.0) g/dL 06/29/17 Range/Units 18:20 WBC (3.8-10.6) k/uL RBC (3.80-5.40) m/uL Hgb (11.4-16.0) gm/dL Hct (34.0-46.0) % MCV (80.0-100.0) fL MCH (25.0-35.0) pg MCHC (31.0-37.0) g/dL RDW (11.5-15.5) % Plt Count (150-450) k/uL Neutrophils % % Lymphocytes % % Monocytes % % Eosinophils % % Basophils % % Neutrophils # (1.3-7.7) k/uL Lymphocytes # (1.0-4.8) k/uL Monocytes # (0-1.0) k/uL Eosinophils # (0-0.7) k/uL Basophils # (0-0.2) k/uL PT 10.2 (9.0-12.0) sec INR 1.0 (<1.2) APTT 24.8 (22.0-30.0) sec Sodium (137-145) mmol/L Potassium (3.5-5.1) mmol/L Chloride (98-107) mmol/L Carbon Dioxide (22-30) mmol/L Anion Gap mmol/L BUN (7-17) mg/dL Creatinine (0.52-1.04) mg/dL Est GFR (CKD-EPI)AfAm (>60 ml/min/1.73 sqM) Est GFR (CKD-EPI)NonAf (>60 ml/min/1.73 sqM) Glucose (74-99) mg/dL Calcium (8.4-10.2) mg/dL Phosphorus (2.5-4.5) mg/dL Magnesium (1.6-2.3) mg/dL Total Bilirubin (0.2-1.3) mg/dL AST (14-36) U/L ALT (9-52) U/L Alkaline Phosphatase (38-126) U/L Total Creatine Kinase (30-135) U/L Total Protein (6.3-8.2) g/dL Albumin (3.5-5.0) g/dL Disposition Clinical Impression: Dizziness Disposition: HOME SELF-CARE Condition: Good Instructions: Dizziness (ED) Referrals: Karely Llanes MD [Primary Care Provider] - 1-2 days
[2017-06-29 19:34] VITALS: BP 157/83; PULSE 60; RESP 18; TEMP 97.9
== END 2017-06-29 19:34 | disposition home or self-care (01) ==
LOC: EC 17:26
DX: R42 Dizziness and giddiness (principal); E11.9 Type 2 diabetes mellitus without complications; I10 Essential (primary) hypertension; F41.9 Anxiety disorder, unspecified; F17.200 Nicotine dependence, unspecified, uncomplicated; Z79.84 Long term (current) use of oral hypoglycemic drugs; Z79.899 Other long term (current) drug therapy; Z88.0 Allergy status to penicillin; Z88.1 Allergy status to other antibiotic agents; Z88.5 Allergy status to narcotic agent; Z53.29 Procedure and treatment not carried out because of patient's decision for other reasons
CPT/HCPCS: 36415; 80053; 82550; 82553; 83735; 84100; 84443; 84484; 85025; 85610; 85730; 93005; 99284

== ENCOUNTER 2017-07-18 15:26 | Emergency (ER) | payer OTHER ==
[2017-07-18 15:54] LABS: Appearance,Urine Clear (Clear); Bilirubin,Urine Negative (Negative); Blood,Urine Negative (Negative); Color,Urine Light Yellow; Glucose,Urine (UA) Negative (Negative); Ketones,Urine Negative (Negative); Leukocyte Esterase,Urine Negative (Negative); Nitrite,Urine Negative (Negative); Protein,Urine Negative (Negative); Specific Gravity,Urine 1.006 (1.001-1.035); Urobilinogen,Urine <2.0 mg/dL (<2.0)
--- NOTE | 2017-07-18 16:56 | ED ---
General Adult HPI - General Chief complaint: Urogenital Stated complaint: no urinary output Time Seen by Provider: 07/18/17 16:42 Source: patient, RN notes reviewed Mode of arrival: ambulatory Limitations: no limitations - History of Present Illness Initial comments: 61-year-old female history hypertension and diabetes presenting for concern of decreased urine output. Patient states she measured her urine this morning and noted only 6 ounces of urine. She has been eating and drinking normally. Denies any dysuria. She states she has been dealing with intermittent constipation which she attributes to her abdominal hernia. She states that the pain and what she she will go 3-4 days between bowel movements. She has seen a general surgeon before for her hernia, and has had recent colonoscopy. Denies any fever or chills. Denies any chest pain or shortness of breath. She has had some lower extremity edema which she states is improving. - Related Data Home Medications Medication Instructions Recorded Confirmed ALPRAZolam [Xanax] 0.125 - 0.25 mg PO BID PRN 04/12/16 07/18/17 Atenolol [Tenormin] 50 mg PO DAILY 04/12/16 07/18/17 Cyanocobalamin [Vitamin B-12] 500 mcg PO DAILY 04/12/16 07/18/17 Hydrochlorothiazide 12.5 mg PO DAILY 04/12/16 07/18/17 Omeprazole [PriLOSEC] 20 mg PO DAILY 04/12/16 07/18/17 Valsartan [Diovan] 40 mg PO DAILY 04/12/16 07/18/17 metFORMIN HCL [Glucophage] 500 mg PO DAILY 04/12/16 07/18/17 Previous Rx's Medication Instructions Recorded Polyethylene Glycol 3350 [Miralax] 17 gm PO DAILY #527 gm 07/18/17 Allergies Allergy/AdvReac Type Severity Reaction Status Date / Time ampicillin Allergy Unknown Verified 07/18/17 16:57 cephalexin [From Keflex] Allergy Rash/Hives Verified 07/18/17 16:57 clindamycin Allergy Unknown Verified 07/18/17 16:57 codeine Allergy Unknown Verified 07/18/17 16:57 Penicillins Allergy Unknown Verified 07/18/17 16:57 Childhood sulfamethoxazole Allergy Unknown Verified 07/18/17 16:57 [From Bactrim] tetracycline Allergy Unknown Verified 07/18/17 16:57 trimethoprim [From Bactrim] Allergy Unknown Verified 07/18/17 16:57 erythromycin base AdvReac Nausea & Verified 07/18/17 16:57 Vomiting Review of Systems ROS Statement: Those systems with pertinent positive or pertinent negative responses have been documented in the HPI. ROS Other: All systems not noted in ROS Statement are negative. Past Medical History Past Medical History: Diabetes Mellitus, Hypertension Additional Past Medical History / Comment(s): irregular heart rate History of Any Multi-Drug Resistant Organisms: None Reported Past Surgical History: Hernia Repair, Tonsillectomy Past Anesthesia/Blood Transfusion Reactions: No Reported Reaction Past Psychological History: Anxiety Smoking Status: Current every day smoker Past Alcohol Use History: None Reported Past Drug Use History: None Reported General Exam Limitations: no limitations General appearance: alert, in no apparent distress Head exam: Present: atraumatic, normocephalic Eye exam: Present: normal appearance, PERRL, EOMI ENT exam: Present: normal exam Neck exam: Present: normal inspection. Absent: tenderness, meningismus Respiratory exam: Present: normal lung sounds bilaterally. Absent: respiratory distress, wheezes Cardiovascular Exam: Present: regular rate, normal rhythm GI/Abdominal exam: Present: soft, hernia, other (Midline surgical scar). Absent : distended, tenderness, guarding, rebound Extremities exam: Present: normal inspection, normal capillary refill. Absent: pedal edema Neurological exam: Present: alert, oriented X3, CN II-XII intact. Absent: motor sensory deficit Psychiatric exam: Present: normal affect, normal mood Skin exam: Present: warm, dry, intact. Absent: cyanosis, diaphoretic Course Vital Signs 07/18/17 07/18/17 15:30 18:32 Temperature 98.3 F 98.1 F Pulse Rate 67 54 L Respiratory 18 16 Rate Blood Pressure 186/81 137/66 O2 Sat by Pulse 95 95 Oximetry Medical Decision Making - Medical Decision Making 61-year-old female presenting with intermittent constipation, and concern for decreased urine output. Urinalysis is performed, this is negative for signs of infection. Patient is able to urinate on command. Laboratory studies reveal normal white blood cell count, stable hemoglobin, normal at rest, creatinine is normal 0.53. KUB is negative for obstruction or free air. Patient does have large ventral hernia on examination, CT is obtained for both concern for renal stones as well as evaluation of his hernia, there is no obstruction, there is evidence of ventral hernia containing bowel, no kidney stones, no signs of hydronephrosis. Patient will be given MiraLAX to help regulate her bowels. She will follow-up with her primary care physician as well as general surgery. - Lab Data Result diagrams: 07/18/17 17:15 07/18/17 17:15 Lab Results 07/18/17 07/18/17 07/18/17 Range/Units 15:40 17:15 17:15 WBC 8.0 (3.8-10.6) k/uL RBC 4.94 (3.80-5.40) m/uL Hgb 15.1 (11.4-16.0) gm/dL Hct 42.4 (34.0-46.0) % MCV 85.8 (80.0-100.0) fL MCH 30.5 (25.0-35.0) pg MCHC 35.6 (31.0-37.0) g/dL RDW 13.3 (11.5-15.5) % Plt Count 255 (150-450) k/uL Neutrophils % 64 % Lymphocytes % 25 % Monocytes % 6 % Eosinophils % 3 % Basophils % 0 % Neutrophils # 5.1 (1.3-7.7) k/uL Lymphocytes # 2.0 (1.0-4.8) k/uL Monocytes # 0.5 (0-1.0) k/uL Eosinophils # 0.2 (0-0.7) k/uL Basophils # 0.0 (0-0.2) k/uL Sodium 136 L (137-145) mmol/L Potassium 3.8 (3.5-5.1) mmol/L Chloride 100 (98-107) mmol/L Carbon Dioxide 24 (22-30) mmol/L Anion Gap 12 mmol/L BUN 11 (7-17) mg/dL Creatinine 0.53 (0.52-1.04) mg/dL Est GFR (CKD-EPI)AfAm >90 (>60 ml/min/1.73 sqM) Est GFR (CKD-EPI)NonAf >90 (>60 ml/min/1.73 sqM) Glucose 107 H (74-99) mg/dL Calcium 9.6 (8.4-10.2) mg/dL Total Bilirubin 0.4 (0.2-1.3) mg/dL AST 26 (14-36) U/L ALT 42 (9-52) U/L Alkaline Phosphatase 93 (38-126) U/L Total Protein 6.9 (6.3-8.2) g/dL Albumin 4.5 (3.5-5.0) g/dL Urine Color Light Yellow Urine Appearance Clear (Clear) Urine pH 7.0 (5.0-8.0) Ur Specific [place] 1.006 (1.001-1.035) Urine Protein Negative (Negative) Urine Glucose (UA) Negative (Negative) Urine Ketones Negative (Negative) Urine Blood Negative (Negative) Urine Nitrite Negative (Negative) Urine Bilirubin Negative (Negative) Urine Urobilinogen <2.0 (<2.0) mg/dL Ur Leukocyte Esterase Negative (Negative) Disposition Clinical Impression: Ventral hernia Disposition: HOME SELF-CARE Condition: Good Instructions: Ventral Hernia (ED) Prescriptions: Polyethylene Glycol 3350 [Miralax] 17 gm PO DAILY #527 gm Referrals: Karely Llanes MD [Primary Care Provider] - 1-2 days Alessandra Flores MD [STAFF PHYSICIAN] - 1-2 days Time of Disposition: 18:49
[2017-07-18 17:26] LABS: Basophils % (A) 0 %; Eosinophils # (A) 0.2 k/uL (0-0.7); Eosinophils % (A) 3 %; HCT 42.4 % (34.0-46.0); HGB 15.1 gm/dL (11.4-16.0); Lymphocytes % (A) 25 %; MCH 30.5 pg (25.0-35.0); MCHC 35.6 g/dL (31.0-37.0); MCV 85.8 fL (80.0-100.0); Mean Platelet Volume 7.8; Monocytes # (A) 0.5 k/uL (0-1.0); Monocytes % (A) 6 %; Neutrophils # (A) 5.1 k/uL (1.3-7.7); Neutrophils % (A) 64 %; Platelet Count 255 k/uL (150-450); RBC 4.94 m/uL (3.80-5.40); RDW 13.3 % (11.5-15.5)
--- NOTE | 2017-07-18 17:34 | XR ---
EXAMINATION TYPE: XR KUB DATE OF EXAM: 07/18/2017 COMPARISON: NONE HISTORY: Difficulty urination TECHNIQUE: 2 views FINDINGS: There is no sign of intestinal obstruction or pneumoperitoneum. Fecal pattern is normal. Th ere are no pathologic calcifications over the kidneys. Lung bases are clear. There is mild thoracolum bar scoliosis. There is an 8 mm calcification in the pelvis in the midline. IMPRESSION: Nonacute abdomen. Calcification over the pelvis could be phlebolith. Bladder stone or ure teral stone is possible.
[2017-07-18 17:37] LABS: ALT 42 U/L (9-52); AST 26 U/L (14-36); Albumin 4.5 g/dL (3.5-5.0); Alkaline Phosphatase 93 U/L (38-126); Anion Gap 12 mmol/L; Blood Urea Nitrogen 11 mg/dL (7-17); Calcium 9.6 mg/dL (8.4-10.2); Carbon Dioxide 24 mmol/L (22-30); Chloride 100 mmol/L (98-107); Glucose 107 mg/dL (74-99); Potassium 3.8 mmol/L (3.5-5.1); Sodium 136 mmol/L (137-145); Total Bilirubin 0.4 mg/dL (0.2-1.3); Total Protein 6.9 g/dL (6.3-8.2)
[2017-07-18 18:33] VITALS: BP 137/66; PULSE 54; RESP 16; TEMP 98.1
--- NOTE | 2017-07-18 18:36 | CT ---
EXAMINATION TYPE: CT abdomen pelvis wo con DATE OF EXAM: 07/18/2017 COMPARISON: NONE HISTORY: Decreased urinary output. CT DLP: 1092 mGycm Automated exposure control for dose reduction was used. TECHNIQUE: Helical acquisition of images was performed from the lung bases through the pelvis. FINDINGS: Lung bases are clear. There is no pleural effusion. There is a small hiatal hernia. The liver spleen pancreas gallbladder appear normal. Bile ducts are not dilated. There is a ventral hernia that contai ns transverse colon. There is omental fat also. There is no adrenal mass. Kidneys have normal size and contour. There is no hydronephrosis. Ureters a re not dilated. There is a mid abdominal second ventral hernia that contains omental fat. This is rocio r the umbilicus. There is no ascites. There is no sign of free air. There are multiple diverticula in the sigmoid colo n. Bladder distends smoothly. Uterus is anteverted. There is no sign of a pelvic mass. I see no bony destructive process. Appendix is not seen. There is no sign of appendicitis. IMPRESSION: MULTIPLE SIGMOID DIVERTICULA. NO EVIDENCE OF DIVERTICULITIS. NO EVIDENCE OF RENAL STONE OR OBSTRUCTIO N. VENTRAL HERNIAS ARE PRESENT AT ALSO CONTAINING THE TRANSVERSE COLON WITHOUT EVIDENCE OF A BOWEL OBSTR UCTION.
== END 2017-07-18 18:57 | disposition home or self-care (01) ==
LOC: EC 15:26
DX: K43.9 Ventral hernia without obstruction or gangrene (principal); K59.00 Constipation, unspecified; L90.5 Scar conditions and fibrosis of skin; R60.0 Localized edema; R39.12 Poor urinary stream; F17.200 Nicotine dependence, unspecified, uncomplicated; I10 Essential (primary) hypertension; E11.9 Type 2 diabetes mellitus without complications; Z88.0 Allergy status to penicillin; Z88.1 Allergy status to other antibiotic agents; Z88.2 Allergy status to sulfonamides; Z88.5 Allergy status to narcotic agent; Z88.8 Allergy status to other drugs, medicaments and biological substances; Z79.84 Long term (current) use of oral hypoglycemic drugs; Z79.899 Other long term (current) drug therapy; Z98.890 Other specified postprocedural states
CPT/HCPCS: 36415; 51798; 74018; 74176; 80053; 81003; 85025; 87086; 99284

== ENCOUNTER 2018-01-15 11:57 | Observation (INO) | payer OTHER ==
[2018-01-15] MEDS ORDERED: SODIUM CHLORIDE 0.9% 1,000 ML IV STA (12:28)
[2018-01-15 13:30] LABS: Basophils # (A) 0.1 k/uL (0-0.2); Basophils % (A) 1 %; Eosinophils # (A) 0.3 k/uL (0-0.7); Eosinophils % (A) 2 %; HCT 44.5 % (34.0-46.0); HGB 15.1 gm/dL (11.4-16.0); Lymphocytes # (A) 1.7 k/uL (1.0-4.8); Lymphocytes % (A) 15 %; MCH 30.1 pg (25.0-35.0); MCV 88.7 fL (80.0-100.0); Mean Platelet Volume 7.4; Monocytes # (A) 0.6 k/uL (0-1.0); Monocytes % (A) 5 %; Neutrophils # (A) 8.7 k/uL (1.3-7.7); Neutrophils % (A) 76 %; Platelet Count 263 k/uL (150-450); RBC 5.01 m/uL (3.80-5.40); RDW 13.5 % (11.5-15.5); WBC 11.5 k/uL (3.8-10.6)
[2018-01-15 13:40] LABS: Partial Thromboplastin Time 24.8 sec (22.0-30.0); Prothrombin Time 9.7 sec (9.0-12.0)
--- NOTE | 2018-01-15 13:44 | ED ---
Abdominal Pain HPI - General Source: patient, RN notes reviewed Mode of arrival: ambulatory Limitations: no limitations <Lazaro Rivas - Last Filed: 01/15/18 16:29> <Malik Carr - Last Filed: 01/15/18 21:22> - General Chief Complaint: Abdominal Pain Stated Complaint: Poss hernia Time Seen by Provider: 01/15/18 12:14 - History of Present Illness Initial Comments: 62-year-old female presents emergency Department with chief complaint of abdominal discomfort. Patient states that she has noticed some increasing pain over her hernia and noticed that the skin was turning red. She states she was going to have surgery by Dr. Flores and Shira the canceled at the last minute. She states this was elective surgery at that time. She states that she presses over her hernia she has noticed that there is more pain. She denies any nausea vomiting diarrhea constipation. Denies fevers or chills. ( Lazaro Rivas) - Related Data Home Medications Medication Instructions Recorded Confirmed ALPRAZolam [Xanax] 0.125 - 0.25 mg PO BID PRN 04/12/16 01/15/18 Atenolol [Tenormin] 50 mg PO DAILY 04/12/16 01/15/18 Cyanocobalamin [Vitamin B-12] 500 mcg PO DAILY 04/12/16 01/15/18 Hydrochlorothiazide 12.5 mg PO DAILY 04/12/16 01/15/18 Omeprazole [PriLOSEC] 20 mg PO DAILY 04/12/16 01/15/18 Valsartan [Diovan] 40 mg PO DAILY 04/12/16 01/15/18 metFORMIN HCL [Glucophage] 500 mg PO DAILY 04/12/16 01/15/18 Acetaminophen Tab [Tylenol Tab] 500 mg PO Q4H PRN 01/15/18 01/15/18 Allergies Allergy/AdvReac Type Severity Reaction Status Date / Time ampicillin Allergy Unknown Verified 01/15/18 12:31 cephalexin [From Keflex] Allergy Rash/Hives Verified 01/15/18 12:31 clindamycin Allergy Unknown Verified 01/15/18 12:31 codeine Allergy Unknown Verified 01/15/18 12:31 lincomycin Allergy Rash/Hives Verified 01/15/18 17:04 Penicillins Allergy Unknown Verified 01/15/18 12:31 Childhood sulfamethoxazole Allergy Unknown Verified 01/15/18 12:31 [From Bactrim] tetracycline Allergy Unknown Verified 01/15/18 12:31 trimethoprim [From Bactrim] Allergy Unknown Verified 01/15/18 12:31 erythromycin base AdvReac Nausea & Verified 01/15/18 12:31 Vomiting Review of Systems ROS Other: All systems not noted in ROS Statement are negative. <Lazaro Rivas - Last Filed: 01/15/18 16:29> ROS Other: All systems not noted in ROS Statement are negative. <Malik Carr - Last Filed: 01/15/18 21:22> ROS Statement: Those systems with pertinent positive or pertinent negative responses have been documented in the HPI. Past Medical History Past Medical History: Diabetes Mellitus, Hypertension Additional Past Medical History / Comment(s): irregular heart rate History of Any Multi-Drug Resistant Organisms: None Reported Past Surgical History: Hernia Repair, Tonsillectomy Past Anesthesia/Blood Transfusion Reactions: No Reported Reaction Past Psychological History: Anxiety Smoking Status: Current every day smoker Past Alcohol Use History: None Reported Past Drug Use History: None Reported <Lazaro Rivas - Last Filed: 01/15/18 16:29> General Exam Limitations: no limitations General appearance: alert, in no apparent distress Head exam: Present: atraumatic, normocephalic, normal inspection Respiratory exam: Present: normal lung sounds bilaterally. Absent: respiratory distress, wheezes, rales, rhonchi, stridor Cardiovascular Exam: Present: regular rate, normal rhythm, normal heart sounds. Absent: systolic murmur, diastolic murmur, rubs, gallop, clicks GI/Abdominal exam: Present: soft, tenderness (Mild in the periumbilical and just superior to the umbilicus), normal bowel sounds, hernia, other (There is mild erythema noted of the surface of the abdomen). Absent: distended, guarding , rebound, rigid <Lazaro Rivas - Last Filed: 01/15/18 16:29> Vital Signs 01/15/18 01/15/18 01/15/18 12:07 14:30 17:12 Temperature 99.3 F 97.5 F L 97.7 F Pulse Rate 67 63 Respiratory 18 18 14 Rate Blood Pressure 160/83 151/65 Blood Pressure 145/79 [Right Arm] O2 Sat by Pulse 95 94 L 95 Oximetry 01/15/18 18:26 Temperature 98.1 F Pulse Rate 66 Respiratory 18 Rate Blood Pressure 164/77 Blood Pressure [Right Arm] O2 Sat by Pulse 95 Oximetry Medical Decision Making - Lab Data Result diagrams: 01/15/18 13:13 01/15/18 13:13 <Lazaro Rivas - Last Filed: 01/15/18 16:29> - Lab Data Result diagrams: 01/15/18 13:13 01/15/18 13:13 <Malik Carr - Last Filed: 01/15/18 21:22> - Medical Decision Making Case discussed with Dr. Lane, recommend admission for IV antibiotics with concern for abdominal wall cellulitis and abdominal hernia. (Malik Carr ) - Lab Data Lab Results 01/15/18 01/15/18 01/15/18 Range/Units 13:13 13:13 13:13 WBC 11.5 H (3.8-10.6) k/uL RBC 5.01 (3.80-5.40) m/uL Hgb 15.1 (11.4-16.0) gm/dL Hct 44.5 (34.0-46.0) % MCV 88.7 (80.0-100.0) fL MCH 30.1 (25.0-35.0) pg MCHC 34.0 (31.0-37.0) g/dL RDW 13.5 (11.5-15.5) % Plt Count 263 (150-450) k/uL Neutrophils % 76 % Lymphocytes % 15 % Monocytes % 5 % Eosinophils % 2 % Basophils % 1 % Neutrophils # 8.7 H (1.3-7.7) k/uL Lymphocytes # 1.7 (1.0-4.8) k/uL Monocytes # 0.6 (0-1.0) k/uL Eosinophils # 0.3 (0-0.7) k/uL Basophils # 0.1 (0-0.2) k/uL PT (9.0-12.0) sec INR (<1.2) APTT (22.0-30.0) sec Sodium 140 (137-145) mmol/L Potassium 4.0 (3.5-5.1) mmol/L Chloride 105 (98-107) mmol/L Carbon Dioxide 24 (22-30) mmol/L Anion Gap 11 mmol/L BUN 11 (7-17) mg/dL Creatinine 0.43 L (0.52-1.04) mg/dL Est GFR (CKD-EPI)AfAm >90 (>60 ml/min/1.73 sqM) Est GFR (CKD-EPI)NonAf >90 (>60 ml/min/1.73 sqM) Glucose 124 H (74-99) mg/dL Plasma Lactic Acid Trva 1.3 (0.7-2.0) mmol/L Calcium 9.9 (8.4-10.2) mg/dL Total Bilirubin 0.5 (0.2-1.3) mg/dL AST 22 (14-36) U/L ALT 16 (9-52) U/L Alkaline Phosphatase 100 (38-126) U/L Total Protein 7.6 (6.3-8.2) g/dL Albumin 4.6 (3.5-5.0) g/dL Amylase 43 (30-110) U/L Lipase 46 (23-300) U/L Urine Color Urine Appearance (Clear) Urine pH (5.0-8.0) Ur Specific [place] (1.001-1.035) Urine Protein (Negative) Urine Glucose (UA) (Negative) Urine Ketones (Negative) Urine Blood (Negative) Urine Nitrite (Negative) Urine Bilirubin (Negative) Urine Urobilinogen (<2.0) mg/dL Ur Leukocyte Esterase (Negative) 01/15/18 01/15/18 Range/Units 13:13 13:55 WBC (3.8-10.6) k/uL RBC (3.80-5.40) m/uL Hgb (11.4-16.0) gm/dL Hct (34.0-46.0) % MCV (80.0-100.0) fL MCH (25.0-35.0) pg MCHC (31.0-37.0) g/dL RDW (11.5-15.5) % Plt Count (150-450) k/uL Neutrophils % % Lymphocytes % % Monocytes % % Eosinophils % % Basophils % % Neutrophils # (1.3-7.7) k/uL Lymphocytes # (1.0-4.8) k/uL Monocytes # (0-1.0) k/uL Eosinophils # (0-0.7) k/uL Basophils # (0-0.2) k/uL PT 9.7 (9.0-12.0) sec INR 1.0 (<1.2) APTT 24.8 (22.0-30.0) sec Sodium (137-145) mmol/L Potassium (3.5-5.1) mmol/L Chloride (98-107) mmol/L Carbon Dioxide (22-30) mmol/L Anion Gap mmol/L BUN (7-17) mg/dL Creatinine (0.52-1.04) mg/dL Est GFR (CKD-EPI)AfAm (>60 ml/min/1.73 sqM) Est GFR (CKD-EPI)NonAf (>60 ml/min/1.73 sqM) Glucose (74-99) mg/dL Plasma Lactic Acid Trav (0.7-2.0) mmol/L Calcium (8.4-10.2) mg/dL Total Bilirubin (0.2-1.3) mg/dL AST (14-36) U/L ALT (9-52) U/L Alkaline Phosphatase (38-126) U/L Total Protein (6.3-8.2) g/dL Albumin (3.5-5.0) g/dL Amylase (30-110) U/L Lipase (23-300) U/L Urine Color Colorless Urine Appearance Clear (Clear) Urine pH 7.0 (5.0-8.0) Ur Specific [place] 1.004 (1.001-1.035) Urine Protein Negative (Negative) Urine Glucose (UA) Negative (Negative) Urine Ketones Negative (Negative) Urine Blood Negative (Negative) Urine Nitrite Negative (Negative) Urine Bilirubin Negative (Negative) Urine Urobilinogen <2.0 (<2.0) mg/dL Ur Leukocyte Esterase Negative (Negative) Disposition <Lazaro Rivas M - Last Filed: 01/15/18 16:29> <Malik Carr - Last Filed: 01/15/18 21:22> Clinical Impression: Abdominal wall cellulitis, Ventral hernia Disposition: ADMITTED IP TO THIS HOSP Condition: Stable
[2018-01-15 14:03] LABS: ALT 16 U/L (9-52); AST 22 U/L (14-36); Albumin 4.6 g/dL (3.5-5.0); Alkaline Phosphatase 100 U/L (38-126); Amylase 43 U/L (30-110); Anion Gap 11 mmol/L; Blood Urea Nitrogen 11 mg/dL (7-17); Calcium 9.9 mg/dL (8.4-10.2); Carbon Dioxide 24 mmol/L (22-30); Chloride 105 mmol/L (98-107); Glucose 124 mg/dL (74-99); Lipase 46 U/L (23-300); Sodium 140 mmol/L (137-145); Total Bilirubin 0.5 mg/dL (0.2-1.3); Total Protein 7.6 g/dL (6.3-8.2)
[2018-01-15 14:09] LABS: Appearance,Urine Clear (Clear); Bilirubin,Urine Negative (Negative); Blood,Urine Negative (Negative); Color,Urine Colorless; Glucose,Urine (UA) Negative (Negative); Ketones,Urine Negative (Negative); Leukocyte Esterase,Urine Negative (Negative); Nitrite,Urine Negative (Negative); Protein,Urine Negative (Negative); Specific Gravity,Urine 1.004 (1.001-1.035); Urobilinogen,Urine <2.0 mg/dL (<2.0)
--- NOTE | 2018-01-15 14:45 | CT ---
EXAMINATION TYPE: CT abdomen pelvis w con DATE OF EXAM: 01/15/2018 COMPARISON: 07/18/2017 HISTORY: surgical ventral hernia CT DLP: 1424.30 mGycm Automated exposure control for dose reduction was used. CONTRAST: CT scan of the abdomen pelvis is performed with IV Contrast, patient injected with 100 mL of Isovue 3 00. FINDINGS- LUNG BASES-subsegmental changes at the lung bases most typical of atelectasis.. LIVER/GB-findings suggest low attenuation diffusely throughout the liver correlate for hepatic steato sis. Focal area of fatty sparing incidentally noted adjacent the gallbladder fossa.. PANCREAS- No gross abnormality is seen. SPLEEN- No gross abnormality is seen. Accessory spleen incidentally noted. ADRENALS- No gross abnormality is seen. KIDNEYS/BLADDER- no hydronephrosis nephrolithiasis or renal mass. BOWEL-no diagnostic evidence of bowel obstruction. Colonic diverticulosis noted. Portions of the colo n are included in the hernia as noted above.. LYMPH NODES- No greater than 1cm abdominal or pelvic lymph nodes areappreciated. OSSEOUS STRUCTURES-hypertrophic and degenerative changes are seen. Retrolisthesis of L2 on 3 and L3 a nd L4 is noted. Multilevel facet arthropathy noted. OTHER- there is an anterior abdominal wall hernia containing peritoneal fat. There is skin thickenin g and induration of the subcutaneous fat which could been the basis of a cellulitis. A second. Hernia sac superior to this containing peritoneal fat and colon. No evidence of bowel obstruction. There appears to be a third anterior abdominal wall defect and hernia containing peritoneal fat. Calcification involving the right uterus noted. IMPRESSION- 1. There is skin thickening and induration of the subcutaneous fat adjacent to a wid[place] anterior a bdominal wall hernia containing peritoneal fat. Correlate for cellulitis. Otherwise consider herniate d omentum with omental infarction. Skin thickening and inflammatory changes are new from the prior ex am. Size of the hernia sac is similar 2. There is a second anterior abdominal wall hernia in the upper abdomen superior to the one describe d above. This contains portions of the colon with no diagnostic evidence of obstruction. Of the colon are seen contained within the sac more superiorly. This is stable from the prior exam. 3. Hepatic steatosis
[2018-01-15] MEDS ORDERED: ONDANSETRON 4 MG/2 ML VIAL IVP PRN (16:30)
[2018-01-15] MEDS ORDERED: HYDROcodone/APAP 5-325MG 1 EACH TAB PO PRN (16:30)
[2018-01-15] MEDS ORDERED: VANCOMYCIN IV PER PHARMACY 1 EACH MISC MISCELLANE PRN (16:30)
[2018-01-15] MEDS ORDERED: MORPHINE SULFATE 4 MG/ML SYRINGE IV PRN (16:30)
[2018-01-15] MEDS ORDERED: LEVOFLOXACIN 750MG-D5W PMX 750 MG in DEXTROSE/WATER 1 150ML.BAG IVPB STA (16:30)
[2018-01-15] MEDS ORDERED: VANCOMYCIN 2,000 MG in SODIUM CHLORIDE 0.9% 500 ML 500 ML IVPB STA (16:39)
[2018-01-15 19:35] VITALS: BMI 35.5
[2018-01-15] MEDS ORDERED: ALPRAZolam 0.25 MG TAB PO PRN (19:35)
[2018-01-15] MEDS ORDERED: diphenhydrAMINE 25 MG CAP PO PRN (19:44)
[2018-01-15] MEDS: INSULIN ASPART 100 UNIT/ML 1 ML 10 ML VIAL SQ SCH (20:30)
[2018-01-15 20:31] LABS: Glucose,Whole Blood 147 mg/dL (75-99)
[2018-01-15] MEDS ORDERED: CALCIUM CARBONATE 500 MG CHEWABLE PO PRN (21:17)
[2018-01-15] MEDS: ACETAMINOPHEN TAB 325 MG TAB PO PRN (21:30)
[2018-01-15] MEDS: SODIUM CHLORIDE 0.9% 1,000 ML IV SCH (21:31)
[2018-01-16] MEDS: ACETAMINOPHEN TAB 325 MG TAB PO PRN ×2 (03:32→09:00)
[2018-01-16] MEDS: FAMOTIDINE 20 MG TAB PO SCH ×2 (05:19→08:58)
[2018-01-16] MEDS ORDERED: VANCOMYCIN 1,750 MG in SODIUM CHLORIDE 0.9% 500 ML 500 ML IVPB SCH (06:00)
[2018-01-16 06:53] LABS: Glucose,Whole Blood 147 mg/dL (75-99)
[2018-01-16] MEDS ORDERED: metFORMIN 500 MG TAB PO SCH (07:30)
[2018-01-16] MEDS ORDERED: PANTOPRAZOLE 40 MG TABLET PO SCH (07:30)
[2018-01-16] MEDS: INSULIN ASPART 100 UNIT/ML 1 ML 10 ML VIAL SQ SCH ×2 (07:31→14:28)
[2018-01-16] MEDS ORDERED: CYANOCOBALAMIN 500 MCG TAB PO SCH (09:00)
[2018-01-16] MEDS ORDERED: VALSARTAN 40 MG TAB PO SCH (09:00)
[2018-01-16] MEDS ORDERED: HYDROCHLOROTHIAZIDE 12.5 MG CAP PO SCH (09:00)
[2018-01-16] MEDS ORDERED: ATENOLOL 50 MG TAB PO SCH (09:00)
[2018-01-16] MEDS: SODIUM CHLORIDE 0.9% 1,000 ML IV SCH (09:15)
[2018-01-16] MEDS ORDERED: MORPHINE ORAL SOLN 10 MG/5 ML CUP PO PRN (09:32)
--- NOTE | 2018-01-16 10:26 | P.GSHP ---
History of Present Illness H&P Date: 01/15/18 CHIEF COMPLAINT: Cellulitis HISTORY OF PRESENT ILLNESS: The patient is a 62-year-old female with known history of incisional ventral hernia. She is planning to undergo surgical intervention however declined secondary to no help at home. She reports coming in for redness along her abdomen for the last day. She denies any abdominal pain. She reports taking care of her handicapped son who had a hit and bumped her belly along the area of redness. Following that, she noticed redness along the abdomen. She had a CT of the abdomen and pelvis confirming her history of incisional hernia however with redness along the subcutaneous tissue hence her admission. PAST MEDICAL HISTORY: See list. PAST SURGICAL HISTORY: See list. MEDICATIONS: See list. ALLERGIES: See list. SOCIAL HISTORY: No illicit drug use FAMILY HISTORY: No reports of Crohn's disease or inflammatory bowel disease REVIEW OF ORGAN SYSTEMS: CONSTITUTIONAL: No fevers or chills HEENT: No troubles with vision or hearing. No reports of dysphagia. ENDOCRINE: No reports of thyroid disorders. Has diabetes. CARDIOVASCULAR: No heart attack. No chest pain. Has hypertension. RESPIRATORY: No shortness of breath or pneumonia. GASTROINTESTINAL: No reports of recent blood in stools. NEURO: No reports of stroke or seizure disorders. PSYCH: No depression or suicidal ideation. Has anxiety HEMATOLOGIC: No easy bruising or bleeding LYMPHATIC: The patient denies any lumps and bumps around the neck. GENITOURINARY: Denies any blood in urine or increased urinary frequency. MUSCULOSKELETAL: Has back pain, stiffness or joint arthritis. SKIN: No skin cancer or rash. PHYSICAL EXAM: VITAL SIGNS: Currently stable. GENERAL: Well-developed in no acute distress. HEENT: No sclera icterus. Extraocular movements grossly intact. Moist buccal mucosa. Head is atraumatic, normocephalic. Hears conversational speech. No nasal drainage. NECK: Supple without lymphadenopathy. CHEST: Non-labored respirations and equal bilateral excursions. CARDIOVASCULAR: Regular rate with regular rhythm. Palpable 2+ radial pulses. ABDOMEN: Soft. Nondistended. Faint area of the subcutaneous tissue of 10 x 6 cm at the umbilicus. Nontender abdomen. Palpable reducible incisional hernia. MUSCULOSKELETAL: No clubbing, cyanosis or edema. NEUROLOGIC: No focal or lateralizing signs. Cranial nerves II through XII grossly intact. PSYCH: Appropriate affect. Alert and oriented to person, place and time. SKIN: Well perfused. Good skin turgor. LABS: Reviewed ASSESSMENT: 1. Abnormal computed tomography scan 2. History of incisional hernia PLAN: 1. Clinically including on computed tomography scan no evidence of bowel obstruction. 2. She has been started on antibiotics and she reports new adverse reaction to Levaquin 3. At this time, patient be observed. She would like to hold off for surgery. Past Medical History Past Medical History: Diabetes Mellitus, Hypertension Additional Past Medical History / Comment(s): irregular heart rate History of Any Multi-Drug Resistant Organisms: None Reported Past Surgical History: Hernia Repair, Tonsillectomy Past Anesthesia/Blood Transfusion Reactions: No Reported Reaction Smoking Status: Current every day smoker - Past Family History Mother Family Medical History: Congestive Heart Failure (CHF), Diabetes Mellitus, Hyperlipidemia, Hypertension Father Additional Family Medical History / Comment(s): Hodgkins Lymphoma Brother(s) Additional Family Medical History / Comment(s): Late onset Bipolar with delusions; brother is homeless Sister(s) Additional Family Medical History / Comment(s): obesity, ADHD Medications and Allergies Home Medications Medication Instructions Recorded Confirmed Type ALPRAZolam [Xanax] 0.125 - 0.25 mg PO BID PRN 04/12/16 01/15/18 History Atenolol [Tenormin] 50 mg PO DAILY 04/12/16 01/15/18 History Cyanocobalamin [Vitamin B-12] 500 mcg PO DAILY 04/12/16 01/15/18 History Hydrochlorothiazide 12.5 mg PO DAILY 04/12/16 01/15/18 History Omeprazole [PriLOSEC] 20 mg PO DAILY 04/12/16 01/15/18 History Valsartan [Diovan] 40 mg PO DAILY 04/12/16 01/15/18 History metFORMIN HCL [Glucophage] 500 mg PO DAILY 04/12/16 01/15/18 History Acetaminophen Tab [Tylenol Tab] 500 mg PO Q4H PRN 01/15/18 01/15/18 History Allergies Allergy/AdvReac Type Severity Reaction Status Date / Time ampicillin Allergy Unknown Verified 01/15/18 12:31 cephalexin [From Keflex] Allergy Rash/Hives Verified 01/15/18 12:31 clindamycin Allergy Unknown Verified 01/15/18 12:31 codeine Allergy Unknown Verified 01/15/18 12:31 lincomycin Allergy Rash/Hives Verified 01/15/18 17:04 Penicillins Allergy Unknown Verified 01/15/18 12:31 Childhood sulfamethoxazole Allergy Unknown Verified 01/15/18 12:31 [From Bactrim] tetracycline Allergy Unknown Verified 01/15/18 12:31 trimethoprim [From Bactrim] Allergy Unknown Verified 01/15/18 12:31 erythromycin base AdvReac Nausea & Verified 01/15/18 12:31 Vomiting Surgical - Exam Vital Signs Temp Pulse Resp BP Pulse Ox 99.3 F 67 18 160/83 95 01/15/18 12:07 01/15/18 12:07 01/15/18 12:07 01/15/18 12:07 01/15/18 12:07 Results - Labs 01/15/18 13:13 01/15/18 13:13 Abnormal Lab Results - Last 24 Hours (Table) 01/15/18 01/15/18 01/15/18 Range/Units 13:13 13:13 20:30 WBC 11.5 H (3.8-10.6) k/uL Neutrophils # 8.7 H (1.3-7.7) k/uL Creatinine 0.43 L (0.52-1.04) mg/dL Glucose 124 H (74-99) mg/dL POC Glucose (mg/dL) 147 H (75-99) mg/dL 01/16/18 Range/Units 06:51 WBC (3.8-10.6) k/uL Neutrophils # (1.3-7.7) k/uL Creatinine (0.52-1.04) mg/dL Glucose (74-99) mg/dL POC Glucose (mg/dL) 147 H (75-99) mg/dL Diabetes panel 01/15/18 Range/Units 13:13 Sodium 140 (137-145) mmol/L Potassium 4.0 (3.5-5.1) mmol/L Chloride 105 (98-107) mmol/L Carbon Dioxide 24 (22-30) mmol/L BUN 11 (7-17) mg/dL Creatinine 0.43 L (0.52-1.04) mg/dL Glucose 124 H (74-99) mg/dL Calcium 9.9 (8.4-10.2) mg/dL AST 22 (14-36) U/L ALT 16 (9-52) U/L Alkaline Phosphatase 100 (38-126) U/L Total Protein 7.6 (6.3-8.2) g/dL Albumin 4.6 (3.5-5.0) g/dL Calcium panel 01/15/18 Range/Units 13:13 Calcium 9.9 (8.4-10.2) mg/dL Albumin 4.6 (3.5-5.0) g/dL Pituitary panel 01/15/18 Range/Units 13:13 Sodium 140 (137-145) mmol/L Potassium 4.0 (3.5-5.1) mmol/L Chloride 105 (98-107) mmol/L Carbon Dioxide 24 (22-30) mmol/L BUN 11 (7-17) mg/dL Creatinine 0.43 L (0.52-1.04) mg/dL Glucose 124 H (74-99) mg/dL Calcium 9.9 (8.4-10.2) mg/dL Adrenal panel 01/15/18 Range/Units 13:13 Sodium 140 (137-145) mmol/L Potassium 4.0 (3.5-5.1) mmol/L Chloride 105 (98-107) mmol/L Carbon Dioxide 24 (22-30) mmol/L BUN 11 (7-17) mg/dL Creatinine 0.43 L (0.52-1.04) mg/dL Glucose 124 H (74-99) mg/dL Calcium 9.9 (8.4-10.2) mg/dL Total Bilirubin 0.5 (0.2-1.3) mg/dL AST 22 (14-36) U/L ALT 16 (9-52) U/L Alkaline Phosphatase 100 (38-126) U/L Total Protein 7.6 (6.3-8.2) g/dL Albumin 4.6 (3.5-5.0) g/dL - Imaging CT scan - abdomen: report reviewed, image reviewed CT scan - pelvis: report reviewed, image reviewed (Findings consistent with multiple ventral hernias involving small bowel along the epigastrium. No signs of bowel obstruction.) Assessment and Plan (1) Anxiety Current Visit: Yes Status: Acute Code(s): F41.9 - ANXIETY DISORDER, UNSPECIFIED SNOMED Code(s): 90270737 (2) Abdominal wall cellulitis Current Visit: Yes Status: Acute Code(s): L03.311 - CELLULITIS OF ABDOMINAL WALL SNOMED Code(s): 79793207 (3) Ventral hernia Current Visit: Yes Status: Acute Code(s): K43.9 - VENTRAL HERNIA WITHOUT OBSTRUCTION OR GANGRENE SNOMED Code(s): 757098434 (4) Diabetes mellitus Current Visit: No Status: Acute Code(s): E11.9 - TYPE 2 DIABETES MELLITUS WITHOUT COMPLICATIONS SNOMED Code(s): 26069918 (5) Hypertension Current Visit: No Status: Acute Code(s): I10 - ESSENTIAL (PRIMARY) HYPERTENSION SNOMED Code(s): 34905465
[2018-01-16 11:35] LABS: Glucose,Whole Blood 157 mg/dL (75-99)
[2018-01-16 11:36] LABS: Basophils % (A) 0 %; Eosinophils # (A) 0.2 k/uL (0-0.7); Eosinophils % (A) 2 %; HCT 41.1 % (34.0-46.0); HGB 13.7 gm/dL (11.4-16.0); Lymphocytes # (A) 1.4 k/uL (1.0-4.8); Lymphocytes % (A) 18 %; MCH 30.5 pg (25.0-35.0); MCHC 33.3 g/dL (31.0-37.0); MCV 91.5 fL (80.0-100.0); Mean Platelet Volume 7.4; Monocytes # (A) 0.4 k/uL (0-1.0); Monocytes % (A) 5 %; Neutrophils # (A) 5.7 k/uL (1.3-7.7); Neutrophils % (A) 72 %; Platelet Count 242 k/uL (150-450); RDW 13.5 % (11.5-15.5); WBC 7.8 k/uL (3.8-10.6)
--- NOTE | 2018-01-16 12:45 | P.DS ---
<FeliceJoselyn Alonso - Last Filed: 01/16/18 12:35> Providers Date of admission: 01/15/18 15:52 Expected date of discharge: 01/16/18 Attending physician: Alessandra Flores Primary care physician: [facility] Course: 62-year-old female who presented to the emergency room with a chief complaint of developing abdominal discomfort. Patient states the discomfort started 48 hours ago. Note the area redness along the abdominal and pelvic area. Patient has a history of incisional hernias. Patient has a history of an incisional ventral hernia. Is planning to undergo surgical intervention in February or March when arrangements can be made patient has a handicap child that she takes care of. Patient does report that handicap son bumped into Her Abdomen after That She Developed Redness. CAT Scan of the Abdomen Pelvis Confirmed History of Incisional Hernias However with Redness along the Subcutaneous Tissue Events suggestive of cellulitis. CAT scan report indicated the size of the hernia sac is similar to prior imaging. The second anterior abdominal wall hernia in the upper abdomen no evidence of bowel obstruction Abdomen obese nondistended is a faint area of subcutaneous tissue 10 x 6 cm at the umbilicus nontender palpable reducible incisional hernia noted Patient was started on IV vancomycin was a noted improvement in the redness to the abdominal umbilical hernia area. Patient was anxious to be discharged home. Patient was felt to be appropriate to be discharged with no antibiotics at this time Impression discharge diagnosis (1) Anxiety Current Visit: Yes Status: Acute Code(s): F41.9 - ANXIETY DISORDER, UNSPECIFIED SNOMED Code(s): 77976472 (2) Abdominal wall cellulitis Current Visit: Yes Status: Acute Code(s): L03.311 - CELLULITIS OF ABDOMINAL WALL SNOMED Code(s): 23156061 (3) Ventral hernia Current Visit: Yes Status: Acute Code(s): K43.9 - VENTRAL HERNIA WITHOUT OBSTRUCTION OR GANGRENE SNOMED Code(s): 000585122 (4) Diabetes mellitus Current Visit: No Status: Acute Code(s): E11.9 - TYPE 2 DIABETES MELLITUS WITHOUT COMPLICATIONS SNOMED Code(s): 90836311 (5) Hypertension Current Visit: No Status: Acute Code(s): I10 - ESSENTIAL (PRIMARY) HYPERTENSION SNOMED Code(s): 52382743 The above impression and plan of care have been discussed and directed by signing physician. Joselyn Viveros nurse practitioner acting as scribe for signing physician. Patient Condition at Discharge: Stable Plan - Discharge Summary Discharge Rx Participant: Yes New Discharge Prescriptions: New Acetaminophen Tab [Tylenol] 650 mg PO Q6HR PRN tab PRN Reason: Mild Pain Or Fever > 100.5 Continue Omeprazole [PriLOSEC] 20 mg PO DAILY Cyanocobalamin [Vitamin B-12] 500 mcg PO DAILY ALPRAZolam [Xanax] 0.125 - 0.25 mg PO BID PRN PRN Reason: Anxiety Hydrochlorothiazide 12.5 mg PO DAILY metFORMIN HCL [Glucophage] 500 mg PO DAILY Valsartan [Diovan] 40 mg PO DAILY Atenolol [Tenormin] 50 mg PO DAILY Acetaminophen Tab [Tylenol] 500 mg PO Q4H PRN PRN Reason: Pain Or Fever > 100.5 Discharge Medication List ALPRAZolam [Xanax] 0.125 - 0.25 mg PO BID PRN 04/12/16 [History] Atenolol [Tenormin] 50 mg PO DAILY 04/12/16 [History] Cyanocobalamin [Vitamin B-12] 500 mcg PO DAILY 04/12/16 [History] Hydrochlorothiazide 12.5 mg PO DAILY 04/12/16 [History] Omeprazole [PriLOSEC] 20 mg PO DAILY 04/12/16 [History] Valsartan [Diovan] 40 mg PO DAILY 04/12/16 [History] metFORMIN HCL [Glucophage] 500 mg PO DAILY 04/12/16 [History] Acetaminophen Tab [Tylenol] 500 mg PO Q4H PRN 01/15/18 [History] Acetaminophen Tab [Tylenol] 650 mg PO Q6HR PRN tab 01/16/18 [Rx] Follow up Appointment(s)/Referral(s): Alessandra Flores MD [STAFF PHYSICIAN] - 02/12/18 10:20 am Karely Llanes MD [Primary Care Provider] - 01/23/18 11:15 am Patient Instructions/Handouts: Ventral Hernia (DC) Discharge Disposition: HOME SELF-CARE <Alessandra Flores - Last Filed: 01/16/18 18:27> - Discharge Diagnosis(es) (1) Anxiety Status: Acute (2) Abdominal wall cellulitis Status: Acute (3) Ventral hernia Status: Acute (4) Diabetes mellitus Status: Acute (5) Hypertension Status: Acute
[2018-01-16 14:17] VITALS: BP 114/71; PULSE 57; RESP 18; TEMP 98.9
[2018-01-17] MEDS ORDERED: VANCOMYCIN TROUGH DUE 1 EACH MISC MISCELLANE ONE (17:00)
== END 2018-01-16 14:56 | disposition home or self-care (01) ==
LOC: EC 11:57 → 3SUR 15:52 → INTOOBSV 15:52 → 3SUR 18:07
PROVIDERS: ADMIT Surgery Plastic and Reconstructive Surgery; ATTEND Surgery Plastic and Reconstructive Surgery
DX: L03.311 Cellulitis of abdominal wall (principal); K43.2 Incisional hernia without obstruction or gangrene; I10 Essential (primary) hypertension; E11.9 Type 2 diabetes mellitus without complications; I49.9 Cardiac arrhythmia, unspecified; F41.9 Anxiety disorder, unspecified; T36.8X5A Adverse effect of other systemic antibiotics, initial encounter; F17.200 Nicotine dependence, unspecified, uncomplicated; Z79.899 Other long term (current) drug therapy; Z79.84 Long term (current) use of oral hypoglycemic drugs; Z88.0 Allergy status to penicillin; Z88.1 Allergy status to other antibiotic agents; Z88.2 Allergy status to sulfonamides; Z88.5 Allergy status to narcotic agent; Z83.3 Family history of diabetes mellitus; Z82.49 Family history of ischemic heart disease and other diseases of the circulatory system; Z83.49 Family history of other endocrine, nutritional and metabolic diseases; Z80.7 Family history of other malignant neoplasms of lymphoid, hematopoietic and related tissues; Z81.8 Family history of other mental and behavioral disorders
CPT/HCPCS: 96366 ×2; 96365; 96375; 99285; 36415; 80053; 82150; 83605; 83690; 85025 ×2; 85610; 85730; 81003; 74177; G0378 ×3; J3370 ×2; J1956; Q9967

== ENCOUNTER → 2018-06-20 | Outpatient (CLI) | payer OTHER ==
--- NOTE | 2018-06-20 08:50 | CT ---
EXAMINATION TYPE: CT abdomen wo con DATE OF EXAM: 06/20/2018 COMPARISON: 01/15/2018 HISTORY: 62-year-old female, periumbilical abdominal pain, Ventral hernia follow up TECHNIQUE: Contiguous axial scanning of the abdomen without IV contrast. Coronal and sagittal reconst ructions performed. CT DLP: 602.3 mGycm Automated exposure control for dose reduction was used. FINDINGS: Heart normal size without pericardial effusion. Lung bases are clear without pleural effusion. Liver borderline enlarged at 17.1 cm with low attenuation. There is some focal fatty sparing along th e gallbladder fossa. Gallbladder, adrenal glands, kidneys, spleen with anterior splenule, and pancreas show no gross abnor mality. There are multiple complex ventral abdominal wall hernias along the midline. In the supraumbilical right paramedian location, this contains the nonobstructed hepatic flexure. The re is a second bowel containing hernia just below containing a short segment of nonobstructed proxima l transverse colon. The ventral hernia has extended inferiorly beyond the [id number]. There are ve ry complex scan over 15 to 16 cm craniocaudal measuring up to 4.7 cm AP and up to 19.9 cm wide. Most of the hernias are difficult to delineate from each other and are primarily fatty hernias. No associa donald inflammatory changes seen within the upper abdomen. The pelvis is not included. Partially visualized diverticular change of the descending colon. No pericolonic inflammatory change. Bones: Facet arthropathy throughout with grade 1 retrolisthesis at L2-L3 and L3-L4. IMPRESSION: 1. MULTIPLE COMPLEX PRIMARILY FATTY VENTRAL ABDOMINAL WALL HERNIAS WHICH ACTUALLY EXTEND MORE INFERIO RLY, BEYOND THE FIELD OF VIEW OF THE ABDOMEN. THESE HERNIAS MEASURE UP TO OVER 16 CM CRANIOCAUDAL, 4. 7 CM AP, AND NEARLY 20 CM WIDE. MULTIPLE ABDOMINAL WALL DEFECTS ARE PRESENT AND ARE TOO NUMEROUS TO D ETAIL. IN THE SUPRAUMBILICAL REGION, ONE OF THE HERNIAS CONTAINS NONOBSTRUCTED HEPATIC FLEXURE AND JU ST BELOW, ANOTHER HERNIA CONTAINS A SHORT LOOP OF NONOBSTRUCTED PROXIMAL TRANSVERSE COLON. 2. BORDERLINE HEPATOMEGALY (17.1 CM) WITH HEPATIC STEATOSIS. 3. LEFT-SIDED COLONIC DIVERTICULOSIS. THE PELVIS IS NOT IMAGED ON THIS EXAM.
== END | disposition home or self-care (01) ==
LOC: RADCTMAIN 07:41
PROVIDERS: ATTEND Family Medicine
DX: K43.9 Ventral hernia without obstruction or gangrene (principal); K76.0 Fatty (change of) liver, not elsewhere classified; R16.0 Hepatomegaly, not elsewhere classified; K57.30 Diverticulosis of large intestine without perforation or abscess without bleeding; K42.9 Umbilical hernia without obstruction or gangrene
CPT/HCPCS: 74150

== ENCOUNTER → 2023-07-04 | Outpatient (CLI) | payer MEDICARE, OTHER ==
--- NOTE | 2023-07-06 08:49 | MM ---
Reason for Exam: Screening (asymptomatic). Patient History: Menarche at age 10. First Full-Term at age 36. Late child-bearing (after 30). Postmenopausal. Patient has history of breast feeding. Risk Values: Suki 5 year model risk: 2.4%. NCI Lifetime model risk: 7.3%. Prior Study Comparison: No prior studies available for comparison. Tissue Density: There are scattered areas of fibroglandular density. Findings: Analyzed By CAD. The pattern is symmetrical. No suspicious groups of microcalcifications, spiculated or lobular masses, architectural distortion or other secondary signs of malignancy are mammographically apparent. Overall Assessment: Negative, BI-RAD 1 Management: Screening Mammogram of both breasts in 1 year. A negative mammogram report should not preclude additional follow up of suspicious palpable abnormalities. Patient should continue monthly self breast exam. A clinical breast exam by your physician is recommended on an annual basis and results should be correlated with mammographic findings. Electronically signed and approved by: Kwabena Vogel D.O. Radiologis
== END | disposition home or self-care (01) ==
LOC: RADMAMWWP 11:20
PROVIDERS: ATTEND Family Medicine
DX: Z12.31 Encounter for screening mammogram for malignant neoplasm of breast (principal); Z78.0 Asymptomatic menopausal state
CPT/HCPCS: 77063; 77067